=== PATIENT | male | born 2005 | race Caucasian/White ===

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

== ENCOUNTER → 2023-09-16 15:25 | Outpatient (BNVA) | payer OTHER, SELFPAY ==
[2022-08-19 11:26] VITALS: BP 109/66; BMI 49.4
== END ==
PROVIDERS: PCP Family Medicine; Visit Provider Psychiatry & Neurology Psychiatry
DX: Z79.899 Other long term (current) drug therapy (principal); F20.89 Other schizophrenia; F33.42 Major depressive disorder, recurrent, in full remission; F40.10 Social phobia, unspecified; F84.0 Autistic disorder
CPT/HCPCS: 80061; 83036

== ENCOUNTER → 2025-01-20 15:50 | Outpatient (BNVA) | payer OTHER, SELFPAY ==
[2022-08-19 11:26] VITALS: BP 109/66; BMI 49.4
== END ==
PROVIDERS: PCP Family Medicine; Visit Provider Psychiatry & Neurology Psychiatry
DX: Z79.899 Other long term (current) drug therapy (principal)
CPT/HCPCS: 80061; 83036